=== PATIENT | female | born 1995 | race Caucasian/White ===

== ENCOUNTER 2017-08-24 04:58 | Emergency (ER) | payer OTHER ==
--- NOTE | 2017-08-24 05:07 | ED Physician Documentation ---
PD HPI UPPER EXT INJURY - Stated complaint Stated Complaint: L HAND ELECTRICAL SHOCK - History obtained from History obtained from: Patient, Friend - History of Present Illness Location: Left, Hand Type of injury: Burn Where injury occurred: Work Timing - onset: Today Timing - details: Abrupt onset, Now resolved Similar symptoms before: Has not had sx before Recently seen: Not recently seen - Additonal information Additional information: Patient is a 22 year old female with no significant past medical history who is presenting to the emergency department for an electric shock. patient was working with a metal tool and it hit some type of wire and caused a small shock. Patient denies any chest pain, syncope, burn or any other symptoms but was made to come in to be seen. Review of Systems Ten Systems: 10 systems reviewed and negative PD ED PE NORMAL - General General: Alert and oriented X 3 - Cardiac Cardiac: RRR - Respiratory Respiratory: No respiratory distress - Abdomen Abdomen: Non distended - Derm Derm: Normal color, Warm and dry, No rash, Other (no burn) - Extremities Extremities: No deformity, No tenderness to palpate - Neuro Neuro: Alert and oriented X 3, No motor deficit, Normal speech Eye Opening: Spontaneous PD MEDICAL DECISION MAKING - ED course Complexity details: reviewed old records, considered differential, d/w patient ED course: Patient was seen and examined at bedside. patient was in no distress and was well appearing. patient was asymptomatic and suffered no significant injury. No further work up was necessary and patient was stable for discharge with outpatient follow up. Departure - Departure Disposition: 01 Home, Self Care Clinical Impression: Electric current accident Condition: Good Instructions: Shock Electrical First Aid Follow-Up: primary,care provider [Other] Comments: It is unlikely that there is any significant damage. You should follow up with your doctor as needed. You can return to the emergency department for chest pain, shortness of breath, new worsening or uncontrollable symptoms. Forms: Activity restrictions
[2017-08-24 05:16] VITALS: BP 115/63
== END 2017-08-24 05:07 | disposition home or self-care (01) ==
LOC: ED 04:58
DX: T75.4XXA Electrocution, initial encounter (principal); W86.8XXA Exposure to other electric current, initial encounter
CPT/HCPCS: 99282; 99283

== ENCOUNTER 2019-08-01 06:18 | Emergency (ER) | payer OTHER ==
[2019-08-01 06:33] VITALS: BP 97/60
--- NOTE | 2019-08-01 06:39 | ED Physician Documentation ---
History of Present Illness - Stated complaint Stated Complaint: COUGH, SORE THROAT,V/D - Chief complaint Chief Complaint: General PD PAST MEDICAL HISTORY - Past Surgical History Past Surgical History: No - Present Medications Home Medications: Ambulatory Orders Medication Instructions Recorded Confirmed No Known Home Medications 08/24/17 08/24/17 - Allergies Allergies/Adverse Reactions: Allergies Allergy/AdvReac Type Severity Reaction Status Date / Time No Known Drug Allergies Allergy Verified 08/24/17 05:26 - Social History Does the pt smoke?: No Smoking Status: Never smoker Does the pt drink ETOH?: Yes Does the pt have substance abuse?: No - Immunizations Immunizations are current?: Yes - POLST Patient has POLST: No Results - Vitals Vitals: Vital Signs - 24 hr 08/01/19 06:25 Temperature 37.6 C H Heart Rate 111 H Respiratory 20 Rate Blood Pressure 97/60 O2 Saturation 98 Oxygen O2 Source Room air
[2019-08-01] MEDS ORDERED: DEXAMETHASONE 10 MG/ML VIAL PO STA (07:33)
[2019-08-01] MEDS ORDERED: CHERRY SYRUP 10 ML UDC PO ONE (07:33)
--- NOTE | 2019-08-01 09:11 | ED Physician Documentation ---
History of Present Illness - Stated complaint Stated Complaint: COUGH, SORE THROAT,V/D - Chief complaint Chief Complaint: General - History obtained from History obtained from: Patient - History of Present Illness Timing: Yesterday - Additonal information Additional information: 24-year-old female has recently traveled to [facility] and she is returned home 2 days ago and last night she developed a fever as well as vomiting and diarrhea. She has had a fever and waves and she is concerned about malaria. She has had been on doxycycline for the past 14 days as prophylaxis. Review of Systems Constitutional: reports: Fever, Chills, Myalgias, Fatigue, Sweats Eyes: denies: Decreased vision Ears: denies: Ear pain Nose: reports: Congestion. denies: Rhinorrhea / runny nose Throat: reports: Sore throat Cardiac: denies: Chest pain / pressure, Palpitations Respiratory: reports: Cough. denies: Dyspnea GI: reports: Nausea, Diarrhea : denies: Dysuria, Frequency Skin: denies: Rash Musculoskeletal: denies: Neck pain, Back pain, Extremity pain Neurologic: reports: Generalized weakness. denies: Focal weakness, Numbness PD PAST MEDICAL HISTORY - Past Medical History Past Medical History: No - Past Surgical History Past Surgical History: No - Present Medications Home Medications: Ambulatory Orders Medication Instructions Recorded Confirmed Ondansetron Odt [Zofran] 4 mg TL Q6H PRN #10 tablet 08/01/19 - Allergies Allergies/Adverse Reactions: Allergies Allergy/AdvReac Type Severity Reaction Status Date / Time No Known Drug Allergies Allergy Verified 08/24/17 05:26 - Social History Does the pt smoke?: No Smoking Status: Never smoker Does the pt drink ETOH?: Yes Does the pt have substance abuse?: No - Immunizations Immunizations are current?: Yes - POLST Patient has POLST: No PD ED PE NORMAL - Vitals Vital signs reviewed: Yes (febrile and tachy) - General General: Alert and oriented X 3, No acute distress, Well developed/nourished - HEENT HEENT: Atraumatic, PERRL, EOMI, Ears normal, Other (dry mucous membranes ) - Neck Neck: Supple, no meningeal sign, No bony TTP - Cardiac Cardiac: No murmur, Other (tachy to 100) - Respiratory Respiratory: No respiratory distress, Clear bilaterally - Abdomen Abdomen: Soft, Non tender - Back Back: No CVA TTP, No spinal TTP - Derm Derm: Normal color, Warm and dry, No rash - Extremities Extremities: No deformity, No edema, No calf tenderness / cord - Neuro Neuro: Alert and oriented X 3, 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, No motor deficit, No sensory deficit, Normal speech Eye Opening: Spontaneous Motor: Obeys Commands Verbal: Oriented GCS Score: 15 - Psych Psych: Normal mood, Normal affect Results - Vitals Vitals: Vital Signs - 24 hr 08/01/19 06:25 Temperature 37.6 C H Heart Rate 111 H Respiratory 20 Rate Blood Pressure 97/60 O2 Saturation 98 Oxygen O2 Source Room air - Labs Labs: Laboratory Tests 08/01/19 07:50 Influenza A (Rapid) Negative Influenza B (Rapid) Negative PD MEDICAL DECISION MAKING - ED course Complexity details: reviewed results, re-evaluated patient, considered differential, d/w patient ED course: Previously healthy 24-year-old female returns from [facility] with a fever in a cyclical fashion concerning for malaria. She has some diarrhea with some dehydration as well. She has cough and international travel and she is evaluated for coronavirus influenza and malaria. The coronavirus and malaria smear results will be available in 2 days time and she will contact her primary care for results. Departure - Departure Disposition: 01 Home, Self Care Clinical Impression: Febrile illness, acute Condition: Stable Instructions: ED Fever Unconf Cause Follow-Up: Your, doctor [Other] Prescriptions: Ondansetron Odt [Zofran] 4 mg TL Q6H PRN #10 tablet PRN Reason: Nausea / Vomiting Comments: Today were tested for both coronavirus and influenza. The influenza swab was negative the blood work results for malaria will be available in 2 days time as well the results for the coronavirus. The recommendation is to go to your home for self quarantine while awaiting the results of your tests. If you have to go out into public wear a mask. Wash her hands frequently and clean up around yourself frequently. Treatment of fever and increased fluids is important. If you get progressively short of breath return to the emergency department.
[2019-08-01] MEDS ORDERED: ONDANSETRON ODT 4 MG TABLET TL STA (09:56)
[2019-08-01 10:04] LABS: BASOPHILS % (AUTO) 0.2 %; EOSINOPHILS % (AUTO) 0.2 %; HGB - HEMOGLOBIN 14.9 g/dL (12.0-16.0); LYMPHOCYTES # (AUTO) 0.3 10^3/uL (1.5-3.5); LYMPHOCYTES % (AUTO) 2.5 %; MEAN CORPUSCULAR HEMOGLOBIN 32.4 pg (27.0-31.0); MEAN CORPUSCULAR HGB CONC 35.1 g/dL (32.0-36.0); MEAN CORPUSCULAR VOLUME 92.4 fL (81.0-99.0); MEAN PLATELET VOLUME 9.8 fL (7.9-10.8); MONOCYTES # (AUTO) 0.3 10^3/uL (0.0-1.0); MONOCYTES % (AUTO) 2.4 %; NEUTROPHILS % (AUTO) 94.4 %; PLT - PLATELET COUNT 227 10^3/uL (130-450); WHITE BLOOD COUNT 11.7 x10^3/uL (4.8-10.8)
[2019-08-01 10:18] LABS: ALBUMIN 4.2 g/dL (3.2-5.5); ALBUMIN/GLOBULIN RATIO 1.2 (1.0-2.2); BILIRUBIN,TOTAL 2.1 mg/dL (0.2-1.0); CALCIUM 8.5 mg/dL (8.5-10.3); CREATININE 0.8 mg/dL (0.4-1.0); TOTAL PROTEIN 7.8 g/dL (6.7-8.2)
== END 2019-08-01 10:04 | disposition home or self-care (01) ==
LOC: ED 06:18
DX: R50.9 Fever, unspecified (principal); R19.7 Diarrhea, unspecified; E86.0 Dehydration; R05 Cough
CPT/HCPCS: 36415; 80053; 81599; 83690; 85025; 87275; 87276; 99283; 99284; A9270; Q0162

== ENCOUNTER 2020-05-28 16:42 | Emergency (ER) | payer OTHER ==
[2020-05-28] MEDS ORDERED: TETANUS/DIPHTHERIA/PERTUSSIS 0.5 ML SYRINGE IM ONE (16:52)
[2020-05-28] MEDS ORDERED: BACITRACIN ZINC OINT 1 PACKET TOP STA (16:52)
[2020-05-28] MEDS ORDERED: BUFFERED LIDOCAINE 10 ML SYRINGE SUBQ STA (16:52)
--- NOTE | 2020-05-28 16:55 | ED Physician Documentation ---
History of Present Illness - Stated complaint Stated Complaint: L FINGER LAC - Chief complaint Chief Complaint: Laceration - Additonal information Additional information: 25-year-old female presents emergency department for evaluation of a laceration to her left middle finger. Sustained when cutting and avocado. Unknown last tetanus. Patient is right-hand dominant. Review of Systems Constitutional: reports: Reviewed and negative Eyes: reports: Reviewed and negative Ears: reports: Reviewed and negative Nose: reports: Reviewed and negative Throat: reports: Reviewed and negative Cardiac: reports: Reviewed and negative Respiratory: reports: Reviewed and negative GI: reports: Reviewed and negative : reports: Reviewed and negative Skin: reports: Laceration (s) (left middle finger) Musculoskeletal: reports: Reviewed and negative Neurologic: reports: Reviewed and negative PD PAST MEDICAL HISTORY - Past Surgical History Past Surgical History: No - Present Medications Home Medications: Ambulatory Orders Medication Instructions Recorded Confirmed Sertraline [Zoloft] 50 mg PO DAILY 05/28/20 05/28/20 - Allergies Allergies/Adverse Reactions: Allergies Allergy/AdvReac Type Severity Reaction Status Date / Time No Known Drug Allergies Allergy Verified 08/24/17 05:26 - Social History Does the pt smoke?: No Smoking Status: Never smoker Does the pt drink ETOH?: Yes Does the pt have substance abuse?: No - Immunizations Immunizations are current?: Yes - POLST Patient has POLST: No PD ED PE EXPANDED - Extremities Extremities: Left finger(s) (Through and through laceration left middle finger between MCP and PIP joint. Normal flexion extension of digit at all joints against resistance. Distal sensation preserved) Results - Vitals Vitals: Vital Signs - 24 hr 05/28/20 16:45 Temperature 36.2 C L Heart Rate 65 Respiratory 12 Rate Blood Pressure 114/70 O2 Saturation 100 Oxygen O2 Source Room air Procedures - Laceration (location) left middle finger Wound type: Linear Neurovascular status: Sensory intact, Motor intact, Vascular intact Tendon involvement: Tendon intact Anesthesia: Lidocaine 1% Wound Preparation: Hibiclens, Irrigated copiously NS Skin layer closure: Size #-0 - enter number (4), Sutures - enter # (5) Other: Patient tolerated well, No complications, Neurovascular intact, Dressing applied, Tetanus booster given Complexity: Simple PD MEDICAL DECISION MAKING - ED course Complexity details: re-evaluated patient, d/w patient ED course: 25-year-old female presents emergency department for a left middle finger laceration sustained when cutting an avocado. She did have a through and through laceration on the radial side of the middle finger between the MCP and DIP joint. However she does have preserved distal sensation and tendon injury. The wound was closed with 5 sutures. Tetanus updated today. Routine wound care and emergent return precautions were discussed. Departure - Departure Disposition: 01 Home, Self Care Clinical Impression: Finger laceration Qualifiers: Encounter type: initial encounter Finger: middle finger Damage to nail status: without damage Foreign body presence: without foreign body Laterality: left Qualified Code(s): S61.213A - Laceration without foreign body of left middle finger without damage to nail, initial encounter Condition: Stable Record reviewed to determine appropriate education?: Yes Instructions: ED Laceration Hand Comments: Your suture should be removed in 7 to 10 days. In 24 hours you may remove the dressing wash gently with warm soap and water, apply any antibiotic ointment and a simple bandage. Your tetanus is up-to-date. Sutures may be removed and a simple visit to any emergency department, urgent care or primary care office or even [facility] Please attempt to keep your wound clean and dry. Do not submerge it in dirty dishwater or bath water. Return to the emergency department if you have any concerns of infection such as redness, fevers milky drainage increased pain.
[2020-05-28 17:24] VITALS: BP 110/66
== END 2020-05-28 17:25 | disposition home or self-care (01) ==
LOC: ED 16:42
DX: S61.213A Laceration without foreign body of left middle finger without damage to nail, initial encounter (principal); W26.0XXA Contact with knife, initial encounter; Y93.G1 Activity, food preparation and clean up; Z23 Encounter for immunization
CPT/HCPCS: 12002; 90471; 90715; 99281; 99283; A9270

== ENCOUNTER 2021-04-11 18:27 | Emergency (ER) | payer OTHER ==
[2021-04-11] MEDS ORDERED: HYDROmorphone 1 MG/ML CARPUJECT IVP STA (18:46)
[2021-04-11] MEDS ORDERED: METOCLOPRAMIDE 10 MG/2 ML VIAL IVP STA (18:46)
[2021-04-11 18:56] LABS: BILIRUBIN,URINE NEGATIVE (NEGATIVE); GLUCOSE, URINE (UA) NEGATIVE (NEGATIVE); KETONES,URINE (UA) 40 mg/dL (NEGATIVE); LEUKOCYTE ESTERASE, URINE NEGATIVE (NEGATIVE); NITRITE,URINE NEGATIVE (NEGATIVE); OCCULT BLOOD,URINE NEGATIVE (NEGATIVE); PH,URINE 6.5 PH (5.0-7.5); PROTEIN,URINE NEGATIVE (NEGATIVE); UROBILINOGEN,URINE 1 (NORMAL) E.U./dL (NORMAL)
[2021-04-11 18:58] LABS: CLARITY,URINE CLEAR (CLEAR)
[2021-04-11 18:59] LABS: BASOPHILS % (AUTO) 0.2 %; HCT - HEMATOCRIT 40.2 % (37.0-47.0); LYMPHOCYTES # (AUTO) 0.3 10^3/uL (1.5-3.5); LYMPHOCYTES % (AUTO) 2.6 %; MEAN CORPUSCULAR HEMOGLOBIN 31.5 pg (27.0-31.0); MEAN CORPUSCULAR HGB CONC 34.8 g/dL (32.0-36.0); MEAN CORPUSCULAR VOLUME 90.5 fL (81.0-99.0); MEAN PLATELET VOLUME 9.6 fL (7.9-10.8); MONOCYTES # (AUTO) 0.7 10^3/uL (0.0-1.0); NEUTROPHILS # (AUTO) 12.2 10^3/uL (1.5-6.6); NEUTROPHILS % (AUTO) 91.8 %; PLT - PLATELET COUNT 196 10^3/uL (130-450); RED BLOOD COUNT 4.44 10^6/uL (4.20-5.40); RED CELL DISTRIBUTION WIDTH 11.9 % (12.0-15.0); WHITE BLOOD COUNT 13.3 x10^3/uL (4.8-10.8)
[2021-04-11 18:59] LABS: HCG UR QUAL NEGATIVE
[2021-04-11 19:12] LABS: ALBUMIN 4.3 g/dL (3.2-5.5); ALBUMIN/GLOBULIN RATIO 1.4 (1.0-2.2); BILIRUBIN,TOTAL 2.4 mg/dL (0.2-1.0); CREATININE 0.7 mg/dL (0.4-1.0); POTASSIUM 3.5 mmol/L (3.5-5.0); TOTAL PROTEIN 7.3 g/dL (6.7-8.2)
[2021-04-11] MEDS ORDERED: DEXAMETHASONE 10 MG/ML VIAL IVP STA (19:43)
[2021-04-11] MEDS ORDERED: SODIUM CHLORIDE 0.9% 1,000 ML IV STA (19:43)
--- NOTE | 2021-04-11 19:44 | CT Report ---
PROCEDURE: HEAD WO INDICATIONS: head injury, severe headache TECHNIQUE: Noncontrast 4.5 mm thick angled axial sections acquired from the foramen magnum to the vertex. For r adiation dose reduction, the following was used: automated exposure control, adjustment of mA and/or kV according to patient size. COMPARISON: None. FINDINGS: Image quality: Excellent. CSF spaces: Basal cisterns are patent. No extra-axial fluid collections. Ventricles are normal in size and shape. The basal cisterns are normal. Brain: No midline shift. No intracranial masses or hemorrhage. Eaton-white matter interface is norm al. Skull and face: Calvarium and visualized facial bones are intact, without suspicious lesions. Sinuses: Visualized sinuses and mastoids are clear. IMPRESSION: No acute intracranial abnormality. Reviewed by: Nathaniel Valencia on 04/11/2021 7:42 PM PST Approved by: Nathaniel Valencia on 04/11/2021 7:42 PM [facility] Station ID: [id number]
[2021-04-11 20:46] LABS: RAPID STREP SCREEN Negative (Negative)
--- NOTE | 2021-04-11 21:00 | ED Physician Documentation ---
History of Present Illness - Stated complaint Stated Complaint: VOMITING,HEADACHE,DIZZY,SORETHROAT - Chief complaint Chief Complaint: Abd Pain - History obtained from History obtained from: Patient - History of Present Illness Timing: How many days ago (4) - Additonal information Additional information: 25 y/o female with a sore throat congestion, cough producing yellow phlem, fever along with vomiting and diarrhea has become ill after a head injury 4 days ago. She did not have LOC but with the vomiting she became concerned as she has had concussion X 4 previously. She is immunized against covid with moderna. Review of Systems Constitutional: reports: Fever, Chills, Myalgias Eyes: denies: Decreased vision Ears: denies: Ear pain Nose: reports: Rhinorrhea / runny nose, Congestion Throat: reports: Sore throat Cardiac: denies: Chest pain / pressure, Palpitations Respiratory: reports: Cough. denies: Dyspnea, Wheezing GI: reports: Nausea, Vomiting, Diarrhea. denies: Abdominal Pain : denies: Dysuria, Frequency Skin: denies: Rash Musculoskeletal: denies: Neck pain, Back pain, Extremity pain Neurologic: reports: Generalized weakness. denies: Focal weakness, Numbness PD PAST MEDICAL HISTORY - Past Surgical History Past Surgical History: No - Present Medications Home Medications: Ambulatory Orders Medication Instructions Recorded Confirmed Sertraline [Zoloft] 50 mg PO DAILY 05/28/20 04/11/21 Amox/Clav 875/125 [Augmentin] 1 each PO Q12H #20 tablet 04/11/21 - Allergies Allergies/Adverse Reactions: Allergies Allergy/AdvReac Type Severity Reaction Status Date / Time No Known Drug Allergies Allergy Verified 04/11/21 18:31 - Social History Does the pt smoke?: No Smoking Status: Never smoker Does the pt drink ETOH?: Yes Does the pt have substance abuse?: No - Immunizations Immunizations are current?: Yes - POLST Patient has POLST: No PD ED PE NORMAL - Vitals Vital signs reviewed: Yes (tachy with wide pulse pressure.) - General General: Alert and oriented X 3, No acute distress, Well developed/nourished, Other (appears fatigued) - HEENT HEENT: Atraumatic, PERRL, EOMI, Other (both TM's are erythematous with distortio n of the landmarks. 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, No motor deficit, No sensory deficit, Normal speech Eye Opening: Spontaneous Motor: Obeys Commands Verbal: Oriented GCS Score: 15 - Psych Psych: Normal mood, Normal affect Results - Vitals Vitals: Vital Signs - 24 hr 04/11/21 04/11/21 18:32 20:35 Temperature 37.2 C Heart Rate 120 H 109 H Respiratory 18 18 Rate Blood Pressure 101/59 L 98/51 L O2 Saturation 99 98 Oxygen O2 Source Room air - Labs Labs: Laboratory Tests 04/11/21 04/11/21 04/11/21 18:40 18:56 18:56 WBC 13.3 H RBC 4.44 Hgb 14.0 Hct 40.2 MCV 90.5 MCH 31.5 H MCHC 34.8 RDW 11.9 L Plt Count 196 MPV 9.6 Neut # (Auto) 12.2 H Lymph # (Auto) 0.3 L [place] # (Auto) 0.7 Eos # (Auto) 0.0 Baso # (Auto) 0.0 Absolute Nucleated RBC 0.00 Nucleated RBC % 0.0 Sodium 131 L Potassium 3.5 Chloride 99 L Carbon Dioxide 21 Anion Gap 11.0 BUN 8 Creatinine 0.7 Estimated GFR (MDRD) 101 Glucose 118 H Calcium 9.0 Total Bilirubin 2.4 H AST 16 ALT 15 Alkaline Phosphatase 47 Total Protein 7.3 Albumin 4.3 Globulin 3.0 Albumin/Globulin Ratio 1.4 Lipase 31 Urine Color YELLOW Urine Clarity CLEAR Urine pH 6.5 Ur Specific [place] 1.020 Urine Protein NEGATIVE Urine Glucose (UA) NEGATIVE Urine Ketones 40 H Urine Occult Blood NEGATIVE Urine Nitrite NEGATIVE Urine Bilirubin NEGATIVE Urine Urobilinogen 1 (NORMAL) Ur Leukocyte Esterase NEGATIVE Ur Microscopic Review NOT INDICATED Urine Culture Comments NOT INDICATED Urine HCG, Qual NEGATIVE Nasal Adenovirus (PCR) Nasal B. parapertussis DNA (PCR) Nasal Coronavir 229E PCR Nasal Coronavir HKU1 PCR Nasal Coronavir NL63 PCR Nasal Coronavir OC43 PCR Nasal Enterovir/Rhinovir PCR Nasal Influenza B PCR Nasal Influenza A PCR Nasal Parainfluen 1 PCR Nasal Parainfluen 2 PCR Nasal Parainfluen 3 PCR Nasal Parainfluen 4 PCR Nasal RSV (PCR) Nasal B.pertussis DNA PCR Nasal C.pneumoniae (PCR) Lionel Human Metapneumo PCR Nasal M.pneumoniae (PCR) Nasal SARS-CoV-2 (PCR) Group A Strep Rapid 04/11/21 04/11/21 20:26 20:26 WBC RBC Hgb Hct MCV MCH MCHC RDW Plt Count MPV Neut # (Auto) Lymph # (Auto) [place] # (Auto) Eos # (Auto) Baso # (Auto) Absolute Nucleated RBC Nucleated RBC % Sodium Potassium Chloride Carbon Dioxide Anion Gap BUN Creatinine Estimated GFR (MDRD) Glucose Calcium Total Bilirubin AST ALT Alkaline Phosphatase Total Protein Albumin Globulin Albumin/Globulin Ratio Lipase Urine Color Urine Clarity Urine pH Ur Specific [place] Urine Protein Urine Glucose (UA) Urine Ketones Urine Occult Blood Urine Nitrite Urine Bilirubin Urine Urobilinogen Ur Leukocyte Esterase Ur Microscopic Review Urine Culture Comments Urine HCG, Qual Nasal Adenovirus (PCR) NOT DETECTED Nasal B. parapertussis DNA (PCR) NOT DETECTED Nasal Coronavir 229E PCR NOT DETECTED Nasal Coronavir HKU1 PCR NOT DETECTED Nasal Coronavir NL63 PCR NOT DETECTED Nasal Coronavir OC43 PCR NOT DETECTED Nasal Enterovir/Rhinovir PCR NOT DETECTED Nasal Influenza B PCR NOT DETECTED Nasal Influenza A PCR NOT DETECTED Nasal Parainfluen 1 PCR NOT DETECTED Nasal Parainfluen 2 PCR NOT DETECTED Nasal Parainfluen 3 PCR NOT DETECTED Nasal Parainfluen 4 PCR NOT DETECTED Nasal RSV (PCR) NOT DETECTED Nasal B.pertussis DNA PCR NOT DETECTED Nasal C.pneumoniae (PCR) NOT DETECTED Lionel Human Metapneumo PCR NOT DETECTED Nasal M.pneumoniae (PCR) NOT DETECTED Nasal SARS-CoV-2 (PCR) NOT DETECTED Group A Strep Rapid Negative PD MEDICAL DECISION MAKING - ED course Complexity details: reviewed results, re-evaluated patient, considered differential, d/w patient Departure - Departure Disposition: 01 Home, Self Care Clinical Impression: Dehydration Otitis media Qualifiers: Otitis media type: suppurative Chronicity: acute Laterality: bilateral Recurrence: not specified as recurrent Spontaneous tympanic membrane rupture: without spontaneous rupture Qualified Code(s): H66.003 - Acute suppurative otitis media without spontaneous rupture of ear drum, bilateral Concussion Qualifiers: Encounter type: initial encounter Loss of consciousness presence/duration: without LOC Qualified Code(s): S06.0X0A - Concussion without loss of consciousness, initial encounter Condition: Stable Instructions: ED Concussion, ED Dehydration, ED Otitis Media Acute Adult Follow-Up: Your, doctor [Other] Prescriptions: Amox/Clav 875/125 [Augmentin] 1 each PO Q12H #20 tablet
[2021-04-11 21:35] LABS: B. PARAPERTUSSIS- RESP PCR PAN NOT DETECTED; B. PERTUSSIS- RESP PCR PANEL NOT DETECTED; C. PNEUMONIAE- RESP PCR PANEL NOT DETECTED; CORONAVIRUS 229E-RESP PCR NOT DETECTED; CORONAVIRUS HKU1-RESP PCR NOT DETECTED; CORONAVIRUS NL63-RESP PCR NOT DETECTED; CORONAVIRUS OC43-RESP PCR NOT DETECTED; HUMAN METAPNEUMOVIRUS NOT DETECTED; INFLUENZA A- RESP PCR PANEL NOT DETECTED; INFLUENZA B - RESP PCR PANEL NOT DETECTED; M. PNEUMONIAE- RESP PCR PANEL NOT DETECTED; PARAINFLUENZA VIRUS 1 NOT DETECTED; PARAINFLUENZA VIRUS 2 NOT DETECTED; PARAINFLUENZA VIRUS 3 NOT DETECTED; PARAINFLUENZA VIRUS 4 NOT DETECTED; RHINOVIRUS/ENTEROVIRUS NOT DETECTED; RSV- RESP PCR PANEL NOT DETECTED; SARS-CoV-2 -RESP PCR PANEL NOT DETECTED
[2021-04-11] MEDS ORDERED: AMOX/CLAV 875 MG/125 MG TABLET PO STA (21:51)
[2021-04-11 22:02] VITALS: BP 100/56
== END 2021-04-11 22:00 | disposition home or self-care (01) ==
LOC: ED 18:27
DX: E86.0 Dehydration (principal); H66.003 Acute suppurative otitis media without spontaneous rupture of ear drum, bilateral; S06.0X0A Concussion without loss of consciousness, initial encounter; X58.XXXA Exposure to other specified factors, initial encounter; Z20.822 Contact with and (suspected) exposure to COVID-19
CPT/HCPCS: 0202U; 36415; 70450; 80053; 81003; 81025; 83690; 85025; 87070; 87430; 96361; 96374; 96375; 99284; A9270; J1170; J2765; 81001; 87086